=== PATIENT | male | born 1955 | race Caucasian/White ===

== ENCOUNTER 2021-01-29 11:55 | Inpatient (IN) | payer MEDICARE ==
[~2021-01-29] VITALS: Ht 177.8 cm; Wt 70.6 kg
[2021-01-29] MEDS ORDERED: ASPI-963 PO (12:08)
--- NOTE | 2021-01-29 12:10 | NUR ---
PT PRESENTS TO ED VIA [facility] AFTER SYNCOPE WHILE SITTING DOWN EATING LUNCH. PT REPORTS NEAR SYNCOPE WHILE WALKING TO JOSE DE JESUS IN THE BOX, AND NAUSEA PRIOR TO THIS STARTING AT 0930. CURRENTLY DENIES PAIN OR NAUSEA. PT REPORTS SLIGHT PRESSURE TO RT SIDE OF HEAD, HX OF SAME SYMPTOMS. ONLY NEW LASTING SYMPTOM BEING DIZZINESS WHILE STANDING.
[2021-01-29] MEDS ORDERED: ONDANSETRON 2MG/ML, 2ML IVPush ONE (12:30)
--- NOTE | 2021-01-29 12:47 | NUR ---
PT RETURNED FROM IMAGING. NAD NOTED AT THIS TIME. LIGHTS DIMMED. AWAITING RESULTS.
--- NOTE | 2021-01-29 12:50 | NUR ---
REPORT TO JAMES ANGULO.
[2021-01-29 12:54] LABS: BASOPHILS % (AUTO) 1 % (0-1); EOSINOPHILS % (AUTO) 1 % (1-7); LYMPHOCYTES % (AUTO) 25 % (22-44); MEAN CORPUSCULAR HEMOGLOBIN 30.2 pg (27.5-34.5); MEAN CORPUSCULAR HGB CONC 33.5 g/dL (33.2-36.2); MEAN PLATELET VOLUME 9.5 fL (7.4-10.4); MONOCYTES % (AUTO) 5 % (2-9); NEUTROPHILS % (AUTO) 68 % (42-75); RED BLOOD COUNT 3.92 x10^6/uL (4.38-5.82); RED CELL DISTRIBUTION WIDTH 13.5 % (9.4-14.8)
[2021-01-29 13:06] LABS: ALANINE AMINOTRANSFERASE 22 U/L (12-78); ALBUMIN 3.4 g/dL (3.4-5.0); ANION GAP 7 mmol/L (5-15); CHLORIDE 107 mmol/L (98-107); CREATININE 0.74 mg/dL (0.7-1.3)
[2021-01-29 13:10] LABS: ALKALINE PHOSPHATASE 54 U/L (45-117); BILIRUBIN,TOTAL 2.3 mg/dL (0.2-1.0); TROPONIN I < 0.015 ng/mL (0.000-0.045)
[2021-01-29 13:16] LABS: PLATELET COUNT 84 x10^3/uL (130-400)
--- NOTE | 2021-01-29 13:30 | NUR ---
PT RESTING COMFORTABLY, NAD, CALL LIGHT WITHIN REACH.
[2021-01-29] MEDS ORDERED: SODIUM CHLORIDE 0.9% 1,000ML IVBOLUS ONE (14:30)
--- NOTE | 2021-01-29 15:00 | NUR ---
PT RESTING COMFORTABLY, NO COMPLAINTS, VSS. AWAITING ADMIT BED.
[2021-01-29] MEDS ORDERED: DOCUSATE 100 MG CAPSULE PO PRN (15:30)
[2021-01-29 15:53] LABS: CHOLESTEROL, TOTAL 133 mg/dL (140-239); TRIGLYCERIDES 95 mg/dL (50-200); VLDL CHOLESTEROL 19 mg/dL (0-25)
[2021-01-29 16:04] LABS: CHOL/HDL RATIO 3.2; FREE T4 (FREE THYROXINE) 0.96 ng/dL (0.76-1.46); HDL CHOL % 31 % (26-37); HDL CHOLESTEROL (DIRECT) 41 mg/dL (40-60); LDL CHOLESTEROL,CALCULATED 73 mg/dL (54-169); LDL/HDL RATIO 1.8 (0.5-3.0); TROPONIN I < 0.015 ng/mL (0.000-0.045)
--- NOTE | 2021-01-29 16:11 | NUR ---
PT TO MRI
--- NOTE | 2021-01-29 17:01 | NUR ---
PT BACK FROM MRI. CONTINUE TO AWAIT ADMIT BED.
[2021-01-29] MEDS ORDERED: ENOXAPARIN 40 MG/0.4 ML ONE (17:05)
[2021-01-29] MEDS: ENOXAPARIN 40 MG/0.4 ML SQ SCH (17:15)
--- NOTE | 2021-01-29 17:42 | NUR ---
REPORT TO ELY RAMIREZ, PT READY FOR TRANSPORT TO FLOOR.
[2021-01-29] MEDS ORDERED: PROPRANOLOL 10 MG TABLET PO SCH (18:00)
[2021-01-29] MEDS: IBUPROFEN 600 MG TABLET PO PRN (19:34)
[2021-01-29 20:11] VITALS: BP 135/77
[2021-01-29] MEDS: LOVASTATIN 20 MG TABLET PO SCH (22:02)
[2021-01-29] MEDS ORDERED: OMEP20CA20 PO (22:04)
[2021-01-29] MEDS ORDERED: PROP10TA51 PO (22:04)
[2021-01-29] MEDS ORDERED: LOVA20TA2 PO (22:04)
[2021-01-29 22:27] LABS: TROPONIN I < 0.015 ng/mL (0.000-0.045)
[2021-01-30 01:04] VITALS: BP 120/72
[2021-01-30 03:04] LABS: MICROSCOPIC INDICATED
[2021-01-30 04:08] LABS: BASOPHILS % (AUTO) 1 % (0-1); EOSINOPHILS % (AUTO) 2 % (1-7); LYMPHOCYTES % (AUTO) 40 % (22-44); MEAN CORPUSCULAR HEMOGLOBIN 30.5 pg (27.5-34.5); MONOCYTES % (AUTO) 9 % (2-9); NEUTROPHILS % (AUTO) 48 % (42-75); PLATELET COUNT 61 x10^3/uL (130-400); RED BLOOD COUNT 3.89 x10^6/uL (4.38-5.82); RED CELL DISTRIBUTION WIDTH 13.3 % (9.4-14.8)
[2021-01-30 04:10] LABS: ANION GAP 5 mmol/L (5-15); CALCIUM 7.9 mg/dL (8.5-10.1); CHLORIDE 109 mmol/L (98-107); CREATININE 0.73 mg/dL (0.7-1.3)
[2021-01-30] MEDS: OMEPRAZOLE 20 MG CAPSULE.DR PO SCH (06:24)
[2021-01-30] MEDS: ASPIRIN 81 MG TABLET EC PO SCH (09:00)
[2021-01-30 09:02] VITALS: BP 128/76
[2021-01-30 13:00] VITALS: BP 125/65
[2021-01-30] MEDS: ENOXAPARIN 40 MG/0.4 ML SQ SCH (16:15)
[2021-01-30 19:49] VITALS: BP 112/72
[2021-01-30] MEDS: IBUPROFEN 600 MG TABLET PO PRN (21:55)
[2021-01-30] MEDS: LOVASTATIN 20 MG TABLET PO SCH (21:55)
[2021-01-31 01:03] VITALS: BP 116/74
[2021-01-31 05:28] LABS: BASOPHILS % (AUTO) 1 % (0-1); EOSINOPHILS % (AUTO) 2 % (1-7); LYMPHOCYTES % (AUTO) 38 % (22-44); MEAN CORPUSCULAR HEMOGLOBIN 30.8 pg (27.5-34.5); MEAN CORPUSCULAR HGB CONC 34.5 g/dL (33.2-36.2); MEAN PLATELET VOLUME 8.8 fL (7.4-10.4); MONOCYTES % (AUTO) 8 % (2-9); NEUTROPHILS % (AUTO) 52 % (42-75); PLATELET COUNT 58 x10^3/uL (130-400); RED CELL DISTRIBUTION WIDTH 13.3 % (9.4-14.8)
[2021-01-31] MEDS: OMEPRAZOLE 20 MG CAPSULE.DR PO SCH (05:31)
[2021-01-31 05:39] LABS: ANION GAP 6 mmol/L (5-15); CHLORIDE 108 mmol/L (98-107); CREATININE 0.65 mg/dL (0.7-1.3)
[2021-01-31] MEDS: ASPIRIN 81 MG TABLET EC PO SCH (08:33)
[2021-01-31 09:48] VITALS: BP 127/83
[2021-01-31] MEDS: IBUPROFEN 600 MG TABLET PO PRN (12:10)
[2021-01-31 15:45] VITALS: BP 128/80
[2021-01-31] MEDS: ENOXAPARIN 40 MG/0.4 ML SQ SCH (16:17)
[2021-01-31] MEDS ORDERED: CIPR500T87 PO (16:29)
[2021-01-31] MEDS ORDERED: LACT1TAB13 PO (16:29)
[2021-01-31] MEDS ORDERED: CIPROFLOXACIN 500 MG TABLET PO SCH (16:30)
== END 2021-01-31 19:20 | disposition home or self-care (01) | DRG 312 ==
LOC: ED 12:53 → EDIP 14:02 → 4WST 17:55
PROVIDERS: ADMIT Family Medicine; ATTEND Internal Medicine
DX: R55 Syncope and collapse (principal); N39.0 Urinary tract infection, site not specified; K22.70 Barrett's esophagus without dysplasia; K74.60 Unspecified cirrhosis of liver; D63.8 Anemia in other chronic diseases classified elsewhere; D69.6 Thrombocytopenia, unspecified; G90.8 Other disorders of autonomic nervous system; D72.819 Decreased white blood cell count, unspecified; E11.65 Type 2 diabetes mellitus with hyperglycemia; E78.5 Hyperlipidemia, unspecified; K75.81 Nonalcoholic steatohepatitis (NASH); K21.9 Gastro-esophageal reflux disease without esophagitis; Z90.49 Acquired absence of other specified parts of digestive tract; Z79.82 Long term (current) use of aspirin
CPT/HCPCS: 36415; 70450; 70551; 71045; 80048; 80053; 80061; 81001; 83036; 83735; 84439; 84443; 84484; 85025; 87086; 93005; 93306; 93880; 99285; G0378; J1650; J7030